=== PATIENT | female | born 1975 | race Caucasian/White ===

== ENCOUNTER 2018-04-07 00:15 | Inpatient (IN) | payer BC, OTHER ==
[2018-04-07 00:30] VITALS: BMI 16.9
--- NOTE | 2018-04-07 00:30 | HP ---
CIWA Score Nausea/Vomitin Muscle Tremors: 4-Moderate,w/Arms Extend Anxiety: 5 Agitation: 5 Paroxysmal Sweats: 3 Orientation: 0-Oriented Tacttile Disturbances: 0-None Auditory Disturbances: 2-Mild Harshness/Frighten Visual Disturbances: 2-Mild Sensitivity Headache: 0-None Present CIWA-Ar Total Score: 24 - Admission Criteria [facility] Guidelines: Admission for Medically Managed Detox: Requires at least one of the followin. CIWA greater than 12 2. Seizures within the past 24 hours 3. Delirium tremens within the past 24 hours 4. Hallucinations within the past 24 hours 5. Acute intervention needed for co occurring medical disorder 6. Acute intervention needed for co occurring psychiatric disorder 7. Severe withdrawal that cannot be handled at a lower level of care (continued vomiting, continued diarrhea, abnormal vital signs) requiring intravenous medication and/or fluids 8. Patient presents the following: CIWA greater than 12 Admission Criteria Met: Admission criteria met Admission ROS [facility] - [facility] Chief Complaint: C/O WITHDRAWAL SX'S. SEEKING DETOX TXMENT FROM [place] Allergies/Adverse Reactions: Allergies Allergy/AdvReac Type Severity Reaction Status Date / Time No Known Allergies Allergy Verified 04/07/18 00:32 History of Present Illness: 42 Y.O. FEMALE WITH LONG HX/O ALCOHOLISM HERE FOR DETOX. CLIENT STATES THIS IS HER FIRST SUBSTANCE ABUSE TXMENT. REFERRED BY A FRIEND. C/O WITHDRAWAL SX'S. CIWA 24. C/O AVH WHEN WITHDRAWING AND AT TIME HAVE EXPERIENCED DT'S. SHE DENIES HX/O SEIZURE D/O. CLIENT IS VERY ANXIOUS ABOUT HERE ADMISSION. SHE IS RELUCTANT TO SHARE ANY INFORMATION BECOMING AGITATED DURING INTERVIEW PROCESS. MINIMIZING ALCOHOL USE. FRIENDS ARE PRESENT STATES SHE DRINKS VODKA AND ALCOHOL DAILY. PMHX- PALPIATIONS, ANOREXIA, ELEVATED LIVER ENZYMES PSYCH- ANXIETY Exam Limitations: No Limitations - Ebola screening Have you traveled outside of the country in the last 21 days: No Have you had contact with anyone from an Ebola affected area: No Have you been sick,other than usual withdrawal symptoms: No Do you have a fever: No - Review of Systems Constitutional: Chills, Loss of Appetite (ANOREXIA), Changes in sleep EENT: reports: No Symptoms Reported Respiratory: reports: No Symptoms reported Cardiac: reports: No Symptoms Reported GI: reports: Diarrhea, Nausea, Poor Appetite, Poor Fluid Intake : reports: No Symptoms Reported Musculoskeletal: reports: Joint Pain (CHRONIC) Integumentary: reports: Bruising (FROM FALLS) Neuro: reports: Tremors, Weakness (GENERALIZED) Endocrine: reports: No Symptoms Reported Hematology: reports: Easy Bruising Psychiatric: reports: Anxious, Depressed, other (PTSD) Other Systems: Reviewed and Negative Patient History - Patient Medical History Hx Anemia: No Hx Asthma: No Hx Chronic Obstructive Pulmonary Disease (COPD): No Hx Cancer: No Hx Cardiac Disorders: No Hx Congestive Heart Failure: No Hx Hypertension: No Hx Hypercholesterolemia: No Hx Pacemaker: No HX Cerebrovascular Accident: No Hx Seizures: No Hx Dementia: No Hx Diabetes: No Hx Gastrointestinal Disorders: No Hx Liver Disease: No Hx Genitourinary Disorders: No Hx Sexually Transmitted Disorders: No Hx Renal Disease (ESRD): No Hx Thyroid Disease: No Hx Human Immunodeficiency Virus (HIV): No Hx Hepatitis C: No Hx Depression: Yes Hx Suicide Attempt: No (ATTEMPTED TO SLASH WRIST 07/2017) Hx Bipolar Disorder: No Hx Schizophrenia: No Other Medical History: ANOREXIA - Patient Surgical History Past Surgical History: Yes Hx Orthopedic Surgery: Yes (LEFT ARM FX REPAIR WITH HARDWARE) Anesthesia Reaction: No - PPD History Previous Implant?: Yes Documented Results: Negative w/o proof Implanted On Prior [facility] Admission?: No PPD to be Administered?: Yes - Reproductive History Patient is a Female of Child Bearing Age (11 -55 yrs old): Yes Last Menstrual Period: 04/07/18 LMP comment: REG Patient : No (NEG [facility]) - Smoking Cessation Smoking history: Current every day smoker Have you smoked in the past 12 months: Yes Aproximately how many cigarettes per day: 10 Cigars Per Day: 0 Hx Chewing Tobacco Use: No Initiated information on smoking cessation: Yes 'Breaking Loose' booklet given: 04/07/18 - Substance & Tx. History Hx Alcohol Use: Yes Hx Substance Use: Yes Substance Use Type: Alcohol Hx Substance Use Treatment: Yes (OUTPATIENT TXMENT DOES NOT RECALL) - Substances Abused WINE Route: Oral Frequency: Daily Amount used: 1 BOTTLE Age of first use: 38 Date of Last Use: 04/06/18 Family Disease History - Family Disease History Family History: Unable to Obtain (STATES SHE IS ADOPTED) Admission Physical Exam [facility] - Physical General Appearance: Yes: Appropriately Dressed, Mild Distress, Cachetic, Tremorous, Irritable, Sweating (FLUSHED), Anxious HEENTM: Yes: EOMI, Normocephalic, Normal Voice, REGI, Pharynx Normal Respiratory: Yes: Chest Non-Tender, Lungs Clear, Normal Breath Sounds, No Respiratory Distress, No Accessory Muscle Use Neck: Yes: Within Normal Limits, No masses,lesions,Nodules, Supple Breast: Yes: Breast Exam Deferred Cardiology: Yes: Regular Rhythm, S1, S2, Tachycardia Abdominal: Yes: Normal Bowel Sounds, Non Tender, Flat, Soft Genitourinary: Yes: Within Normal Limits (NO C/O) Back: Yes: Normal Inspection Musculoskeletal: Yes: full range of Motion, Gait Steady Extremities: Yes: Normal Range of Motion, Non-Tender, Tremors, Other (RESOLVING ECCHYMOSIS TO BLE) Neurological: Yes: Fully Oriented, Alert, Motor Strength 5/5, Depressed Affect, Other (CRYING ON AND OFF) Integumentary: Yes: Dry, Warm Lymphatic: Yes: Within Normal Limits - Diagnostic (1) Alcohol dependence with uncomplicated withdrawal Status: Acute (2) Nicotine dependence Status: Acute Qualifiers: Nicotine product type: cigarettes Substance use status: uncomplicated Qualified Code(s): F17.210 - Nicotine dependence, cigarettes, uncomplicated (3) Anorexia Status: Acute (4) Cachectic Status: Chronic (5) Depressed affect Status: Acute (6) Anxiety Status: Chronic (7) History of self injurious behavior Status: Chronic (8) At risk for dehydration due to poor fluid intake Status: Acute (9) Substance-induced sleep disorder Status: Chronic Cleared for Admission [facility] - Detox or Rehab [facility] Level of Care: Medically Managed Detox Regimen/Protocol: Librium Claeared for Rehab Admission: No [facility] Breath Alcohol Content Breath Alcohol Content: 0.322 Vital Signs - Vital Signs Vital Signs Refused: Yes Temperature: 97.7 F Temperature Source: Oral Pulse Rate: 93 Respiratory Rate: 18 Blood Pressure: 100/72 BP Location: Left Arm Blood Pressure Position: Sitting - Height Height: 4 ft 11 in - Weight Weight: 38.102 kg Weight Measurement Method: Standing Scale Body Mass Index (BMI): 16.9 - Bowel Function Bowel Movement: No Urine Pregancy Test - Test Device Lot Number: [id number] Expiration Date: 09/03/19 - Control Horizontal Line in Upper Control Window?: Yes - Result Urine Test Results: Negative- NO Line Present Urine Drug Screen - Test Device Lot Number: [id number] Expiration Date: 08/04/19 - Control Is Test Valid: Yes - Results Drug Screen Negative: No Urine Drug Screen Results: BZO-Benzodiazepines
[2018-04-07] MEDS ORDERED: P-EPHED 60MG/TRIPROLIDI 2.5MG TABLET PO PRN (01:10)
[2018-04-07] MEDS ORDERED: MAG HYDROX/AL HYDROX/SIMETH 30 ML UNIT-DOSE CUP PO PRN (01:10)
[2018-04-07] MEDS ORDERED: MENTHOL/PHENOL 1 EACH UD MM PRN (01:10)
[2018-04-07] MEDS ORDERED: LOPERAMIDE HCL 2 MG CAPSULE PO PRN (01:10)
[2018-04-07] MEDS ORDERED: MAGNESIUM CITRATE 300 ML BOTTLE PO PRN (01:10)
[2018-04-07] MEDS ORDERED: guaiFENesin/D-METHORPHAN HB 10 ML UNIT-DOSE CUPS PO PRN (01:10)
[2018-04-07] MEDS ORDERED: NICOTINE POLACRILEX 2 MG GUM BC PRN (01:10)
[2018-04-07] MEDS ORDERED: MAGNESIUM HYDROX 2400MG/30ML ORAL SUSPENSION 30 ML CUP PO PRN (01:10)
[2018-04-07] MEDS: chlordiazePOXIDE HCL 25 MG CAPSULE PO PRN ×2 (02:40→13:21)
[2018-04-07] MEDS: IBUPROFEN 400 MG TABLET (FP) PO PRN ×3 (02:45→20:14)
[2018-04-07] MEDS: chlordiazePOXIDE HCL 25 MG CAPSULE PO SCH ×4 (07:13→22:13)
--- NOTE | 2018-04-07 07:51 | CONSULT ---
[facility] Psychiatric Consult - Data Date of interview: 04/07/18 Admission source: [facility] Identifying data: This is a 42 years old female, mother of two, living with family, part time receptionist working, with no psychiatric hospitalization history, with long history of Alcohol and Nicotine dependence, seeking for detox reporting Alcohol withdrawal symptoms. Patient minimising past psychiatric history Substance Abuse History: Smoking history: Current every day smoker. Have you smoked in the past 12 months: Yes. Aproximately how many cigarettes per day: 10. Cigars Per Day: 0. Hx Chewing Tobacco Use: No. Initiated information on smoking cessation: Yes. 'Breaking Loose' booklet given: 04/07/18. - Substance & Tx. History. Hx Alcohol Use: Yes. Hx Substance Use: Yes. Substance Use Type : Alcohol. Hx Substance Use Treatment: Yes (OUTPATIENT TXMENT DOES NOT RECALL) . - Substances Abused. WINE. Route: Oral. Frequency: Daily. Amount used : 1 BOTTLE. Age of first use: 38. Date of Last Use: 04/06/18 Medical History: Anorexia history,. Denies any other significant medical issues , minimisint past medical history Psychiatric History: Patient denies past psychiatric hospitalization history, denies suicidal and homicidal history as well. As per chart there is a history of Anorexia. Reports taking prior to admission for depression: Prozac 10mg poqd Physical/Sexual Abuse/Trauma History: Denies Additional Comment: Prozac 10mg poqd Mental Status Exam - Mental Status Exam Alert and Oriented to: Place, Person Cognitive Function: Fair Patient Appearance: Well Groomed Mood: Suspicious, Anxious Affect: Mood Congruent Patient Behavior: Guarded Speech Pattern: Appropriate Voice Loudness: Mildly Soft/Quiet Thought Process: Goal Oriented Thought Disorder: Being Controlled Hallucinations: Denies Suicidal Ideation: Denies Homicidal Ideation: Denies Insight/Judgement: Fair Sleep: Difficulty falling asleep Appetite: Weight loss Muscle strength/Tone: Mild Hypotonicity Gait/Station: Normal Additional Comments: Prozac 10mg poqd Psychiatric Findings - Problem List ([place] 1, 2,3) (1) Alcohol dependence with uncomplicated withdrawal Current Visit: Yes Status: Acute (2) Anorexia Current Visit: Yes Status: Acute (3) Nicotine dependence Current Visit: Yes Status: Acute Qualifiers: Nicotine product type: cigarettes Substance use status: uncomplicated Qualified Code(s): F17.210 - Nicotine dependence, cigarettes, uncomplicated (4) History of self injurious behavior Current Visit: Yes Status: Chronic (5) Substance-induced sleep disorder Current Visit: Yes Status: Chronic - Initial Treatment Plan Initial Treatment Plan: Prozac 10mg poqd
[2018-04-07 10:17] LABS: HEMATOCRIT 32.4 % (32.4-45.2); HEMOGLOBIN 10.7 GM/dL (10.7-15.3); MCH 37.7 pg (25.7-33.7); MEAN CELL VOLUME 114.2 fl (80-96); MEAN PLT VOLUME 8.2 fl (7.5-11.1); PLATELET COUNT 103 K/MM3 (134-434); RBC 2.84 M/mm3 (3.60-5.2); RDW 14.5 % (11.6-15.6); WHITE BLOOD COUNT 7.1 K/mm3 (4.0-10.0)
[2018-04-07] MEDS: PRENATAL VITAMINS W/ FOLIC ACID TABLET (FP) PO SCH (10:21)
[2018-04-07] MEDS: NICOTINE 14 MG/24 HOURS TOPICAL PATCH TD SCH (10:23)
[2018-04-07 10:40] LABS: ALBUMIN 2.7 g/dl (3.4-5.0); ALK PHOS 110 U/L (45-117); ANION GAP 11 MMOL/L (8-16); BILIRUBIN,TOTAL 0.4 mg/dL (0.2-1); BLOOD UREA NITROGEN 5 mg/dL (7-18); CHLORIDE 103 mmol/L (98-107); CO2 25 mmol/L (21-32); CREATININE 0.4 mg/dL (0.55-1.3); GLUCOSE,RANDOM 80 mg/dL (74-106); SGOT/AST 68 U/L (15-37); SGPT/ALT 34 U/L (13-61); SODIUM 139 mmol/L (136-145); TOT PROT 5.5 g/dl (6.4-8.2)
--- NOTE | 2018-04-07 11:12 | PN ---
S CIWA - CIWA Score Nausea/Vomitin-No Nausea/No Vomiting Muscle Tremors: 4-Moderate,w/Arms Extend Anxiety: 4-Mod. Anxious/Guarded Agitation: 4-Moderately Restless Paroxysmal Sweats: 3 Orientation: 0-Oriented Tacttile Disturbances: 0-None Auditory Disturbances: 0-None Visual Disturbances: 0-None Headache: 0-None Present CIWA-Ar Total Score: 15 B[facility] Progress Note (SOAP) Subjective: sweats shakes anxiety interrupted sleep body aches Objective: 04/07/18 11:11 Vital Signs Temperature 98.2 F 04/07/18 09:18 Pulse Rate 87 04/07/18 10:30 Respiratory Rate 18 04/07/18 10:30 Blood Pressure 106/66 04/07/18 09:18 O2 Sat by Pulse Oximetry (%) Laboratory Tests 04/07/18 04/07/18 04/07/18 07:10 07:10 07:10 WBC 7.1 RBC 2.84 L Hgb 10.7 Hct 32.4 MCV 114.2 H MCH 37.7 H MCHC 33.0 RDW 14.5 Plt Count 103 L MPV 8.2 Sodium 139 Chloride 103 Carbon Dioxide 25 Anion Gap 11 BUN 5 L Creatinine 0.4 L Creat Clearance w eGFR > 60 Random Glucose 80 Calcium 8.0 L Total Bilirubin 0.4 AST 68 H ALT 34 Alkaline Phosphatase 110 Total Protein 5.5 L Albumin 2.7 L RPR Titer Nonreactive rest of labs pending aaox3 ambulating no acute distress potassium 2.7 Assessment: 04/07/18 11:11 withdrawal sx Plan: continue detox increase fluids KCL 40meq q4hrs for one day ordered will repeat labs
--- NOTE | 2018-04-07 11:27 | EKG ---
Test Reason : Blood Pressure : / mmHG Vent. Rate : 077 BPM Atrial Rate : 077 BPM P-R Int : 200 ms QRS Dur : 092 ms QT Int : 418 ms P-R-T Axes : 077 070 061 degrees QTc Int : 473 ms NORMAL SINUS RHYTHM INCOMPLETE RIGHT BUNDLE BRANCH BLOCK BORDERLINE ECG NO PREVIOUS ECGS AVAILABLE Confirmed by ANDREW PATTON, DANIEL ([id number]) on 04/07/2018 11:27:13 AM Referred By: Fern Hudson Confirmed By:DANIEL MORALES MD
[2018-04-07 11:28] LABS: POTASSIUM 2.7 mmol/L (3.5-5.1)
[2018-04-07] MEDS: POTASSIUM CHLORIDE ORAL LIQUID 20 MEQ/15 ML PO SCH ×4 (12:44→23:08)
[2018-04-07] MEDS: THIAMINE HCL 100 MG TABLET (FP) PO SCH (22:13)
[2018-04-07] MEDS: MELATONIN 5 MG TABLETS PO PRN (22:17)
[2018-04-08] MEDS: FLUoxetine HCL 10 MG CAPSULE (FP) PO SCH (06:23)
[2018-04-08] MEDS: chlordiazePOXIDE HCL 25 MG CAPSULE PO SCH ×4 (06:23→22:22)
[2018-04-08] MEDS: PRENATAL VITAMINS W/ FOLIC ACID TABLET (FP) PO SCH (10:46)
[2018-04-08] MEDS: NICOTINE 14 MG/24 HOURS TOPICAL PATCH TD SCH (10:46)
[2018-04-08] MEDS: IBUPROFEN 400 MG TABLET (FP) PO PRN ×2 (10:47→22:22)
--- NOTE | 2018-04-08 11:25 | PN ---
S CIWA - CIWA Score Nausea/Vomitin-No Nausea/No Vomiting Muscle Tremors: 4-Moderate,w/Arms Extend Anxiety: 3 Agitation: 3 Paroxysmal Sweats: 3 Orientation: 0-Oriented Tacttile Disturbances: 0-None Auditory Disturbances: 0-None Visual Disturbances: 0-None Headache: 1-Very Mild CIWA-Ar Total Score: 14 S Progress Note (SOAP) Subjective: headaches sweats irritable mild shakes Objective: 04/08/18 11:27 Vital Signs Temperature 100.8 F H 04/08/18 09:24 Pulse Rate 106 H 04/08/18 09:24 Respiratory Rate 18 04/08/18 09:24 Blood Pressure 114/80 04/08/18 09:24 O2 Sat by Pulse Oximetry (%) Laboratory Tests 04/07/18 04/07/18 04/07/18 07:10 07:10 07:10 WBC 7.1 RBC 2.84 L Hgb 10.7 Hct 32.4 MCV 114.2 H MCH 37.7 H MCHC 33.0 RDW 14.5 Plt Count 103 L MPV 8.2 Sodium 139 Potassium 2.7 L* Chloride 103 Carbon Dioxide 25 Anion Gap 11 BUN 5 L Creatinine 0.4 L Creat Clearance w eGFR > 60 Random Glucose 80 Calcium 8.0 L Total Bilirubin 0.4 AST 68 H ALT 34 Alkaline Phosphatase 110 Total Protein 5.5 L Albumin 2.7 L RPR Titer Nonreactive pt received KCL replenish for low K 2.7 labs repeated for tomorrow aaox3 ambulating no acute distress Assessment: 04/08/18 11:29 withdrawal sx Plan: continue detox increase fluids dietary sr solutions consultant ordered
[2018-04-08 14:17] LABS: URINE APPEARANCE SLCLOUDY; URINE BILIRUBIN NEGATIVE (<2.0 mg/dL); URINE COLOR YELLOW; URINE GLUCOSE (UA) NEGATIVE (NEGATIVE); URINE KETONE NEGATIVE (NEGATIVE); URINE LEUK ESTERASE NEGATIVE (NEGATIVE); URINE NITRITE POSITIVE (NEGATIVE); URINE PROTEIN NEGATIVE (NEGATIVE); URINE UROBILINOGEN NEGATIVE mg/dL (0.2-1.0)
[2018-04-08 14:20] LABS: EPI CELLS FEW /HPF (FEW); URINE BACTERIA RARE /hpf (NONE SEEN); URINE MUCUS RARE
[2018-04-08] MEDS: MELATONIN 5 MG TABLETS PO PRN (22:22)
[2018-04-08] MEDS: THIAMINE HCL 100 MG TABLET (FP) PO SCH (22:22)
[2018-04-08] MEDS: hydrOXYzine PAMOATE 50 MG CAPSULE (FP) PO PRN (22:22)
[2018-04-09] MEDS: chlordiazePOXIDE 5 MG CAPSULE PO SCH ×4 (06:19→22:46)
[2018-04-09] MEDS: FLUoxetine HCL 10 MG CAPSULE (FP) PO SCH (06:21)
[2018-04-09] MEDS: PRENATAL VITAMINS W/ FOLIC ACID TABLET (FP) PO SCH (10:12)
[2018-04-09] MEDS: IBUPROFEN 400 MG TABLET (FP) PO PRN ×2 (10:13→19:34)
[2018-04-09] MEDS: NICOTINE 14 MG/24 HOURS TOPICAL PATCH TD SCH (10:14)
[2018-04-09 11:11] LABS: BASO % 1.3 % (0-2.0); EOS % 3.7 % (0-4.5); HEMATOCRIT 32.2 % (32.4-45.2); HEMOGLOBIN 11.4 GM/dL (10.7-15.3); LYMPH % 39.5 % (8-40); MCH 39.9 pg (25.7-33.7); MCHC 35.6 g/dl (32.0-36.0); MEAN CELL VOLUME 112.1 fl (80-96); MEAN PLT VOLUME 8.8 fl (7.5-11.1); NEUT % 47.5 % (42.8-82.8); PLATELET COUNT 141 K/MM3 (134-434); RBC 2.87 M/mm3 (3.60-5.2); RDW 14.2 % (11.6-15.6); WHITE BLOOD COUNT 3.5 K/mm3 (4.0-10.0)
--- NOTE | 2018-04-09 11:24 | PN ---
[facility] Progress Note (SOAP) Subjective: agitation sweats Objective: 04/09/18 11:24 Vital Signs Temperature 98.2 F 04/09/18 10:00 Pulse Rate 89 04/09/18 10:00 Respiratory Rate 18 04/09/18 10:00 Blood Pressure 107/56 L 04/09/18 10:00 O2 Sat by Pulse Oximetry (%) aaox3 ambulating no acute distress Assessment: 04/09/18 11:25 mild withdrawal sx Plan: continue detox increase fluids d/c in am
[2018-04-09 11:25] LABS: ALBUMIN 2.7 g/dl (3.4-5.0); ALK PHOS 116 U/L (45-117); ANION GAP 10 MMOL/L (8-16); BILIRUBIN,TOTAL 0.5 mg/dL (0.2-1); BLOOD UREA NITROGEN 6 mg/dL (7-18); CALCIUM 8.4 mg/dL (8.5-10.1); CHLORIDE 102 mmol/L (98-107); CO2 26 mmol/L (21-32); CREATININE 0.4 mg/dL (0.55-1.3); GLUCOSE,RANDOM 95 mg/dL (74-106); POTASSIUM 3.7 mmol/L (3.5-5.1); SGOT/AST 54 U/L (15-37); SGPT/ALT 32 U/L (13-61); SODIUM 138 mmol/L (136-145); TOT PROT 5.5 g/dl (6.4-8.2)
[2018-04-09] MEDS: ACETAMINOPHEN 325 MG TABLET (FP) PO PRN (12:54)
[2018-04-09 15:02] LABS: ANISOCYTOSIS 1+; MACROCYTOSIS 1+; OVALOCYTE 1+; PLATELET ESTIMATE DECREASED
[2018-04-09] MEDS: THIAMINE HCL 100 MG TABLET (FP) PO SCH (22:45)
[2018-04-09] MEDS: MELATONIN 5 MG TABLETS PO PRN (22:46)
[2018-04-09] MEDS: hydrOXYzine PAMOATE 50 MG CAPSULE (FP) PO PRN (22:51)
[2018-04-10] MEDS: FLUoxetine HCL 10 MG CAPSULE (FP) PO SCH (06:16)
[2018-04-10] MEDS: chlordiazePOXIDE HCL 10 MG CAPSULE PO SCH ×3 (06:16→17:06)
--- NOTE | 2018-04-10 09:15 | DS ---
[facility] Detox Discharge Summary Admission Date: 04/07/18 Discharge Date: 04/10/18 - History Present History: Alcohol Dependence - Physical Exam Results Vital Signs: Vital Signs Temperature 98.1 F 04/10/18 09:10 Pulse Rate 84 04/10/18 09:10 Respiratory Rate 18 04/10/18 09:10 Blood Pressure 115/61 04/10/18 09:10 O2 Sat by Pulse Oximetry (%) - Treatment Hospital Course: Detox Protocol Followed, Detoxed Safely, Responded well, Discharged Condition Good, Rehab Referral Accepted - Medication Discharge Medications: Ambulatory Orders Fluoxetine HCl [Prozac] 10 mg PO AM #30 capsule 04/07/18 clonazePAM [Klonopin -] 0.5 mg PO DAILY 04/07/18 - Diagnosis (1) Alcohol dependence with uncomplicated withdrawal Current Visit: Yes Status: Chronic (2) Anorexia Current Visit: Yes Status: Acute (3) At risk for dehydration due to poor fluid intake Current Visit: Yes Status: Acute (4) Depressed affect Current Visit: Yes Status: Acute (5) Nicotine dependence Current Visit: Yes Status: Chronic Qualifiers: Nicotine product type: cigarettes Substance use status: uncomplicated Qualified Code(s): F17.210 - Nicotine dependence, cigarettes, uncomplicated (6) Anxiety Current Visit: Yes Status: Chronic (7) History of self injurious behavior Current Visit: Yes Status: Chronic (8) Substance-induced sleep disorder Current Visit: Yes Status: Chronic (9) Hypokalemia Current Visit: Yes Status: Acute - AMA Did Patient Leave Against Medical Advice: No (referred to [facility])
[2018-04-10] MEDS: PRENATAL VITAMINS W/ FOLIC ACID TABLET (FP) PO SCH (09:17)
[2018-04-10] MEDS: IBUPROFEN 400 MG TABLET (FP) PO PRN (09:18)
[2018-04-10] MEDS: NICOTINE 14 MG/24 HOURS TOPICAL PATCH TD SCH (10:46)
[2018-04-10] MEDS: ACETAMINOPHEN 325 MG TABLET (FP) PO PRN (11:38)
[2018-04-10] MEDS: hydrOXYzine PAMOATE 50 MG CAPSULE (FP) PO PRN (16:21)
[2018-04-10 17:26] VITALS: BP 102/71; PULSE 94; TEMP 98.6
== END 2018-04-10 18:00 | disposition home or self-care (01) | DRG 897 ==
LOC: YASAS 00:15 → Y6N 00:56
PROC: HZ2ZZZZ Detoxification Services for Substance Abuse Treatment (ICD-10-PCS; principal; 2018-04-07)
DX: F10.230 Alcohol dependence with withdrawal, uncomplicated (principal); F19.282 Other psychoactive substance dependence with psychoactive substance-induced sleep disorder; R64 Cachexia; Z68.1 Body mass index [BMI] 19.9 or less, adult; F17.210 Nicotine dependence, cigarettes, uncomplicated; F41.9 Anxiety disorder, unspecified; E87.6 Hypokalemia; R63.0 Anorexia; R45.89 Other symptoms and signs involving emotional state; Z91.5 Personal history of self-harm; Z91.89 Other specified personal risk factors, not elsewhere classified
CPT/HCPCS: 36415; 80053; 81003; 81015; 85025; 85027; 86593; 93005; 93010